=== PATIENT | male | born 1955 | race Caucasian/White ===

== ENCOUNTER 2019-08-25 11:19 | Inpatient (IN) ==
[2019-08-25] MEDS ORDERED: ADENOSINE 6 MG/2 ML VIAL ONE (11:25)
[2019-08-25] MEDS ORDERED: DILTIAZEM 50 MG/10 ML VIAL IV ONE (11:34)
[2019-08-25] MEDS ORDERED: SODIUM CHLORIDE 0.9% 500 ML IV STA ×2 (11:37→12:40)
[2019-08-25] MEDS ORDERED: ADENOSINE 6 MG/2 ML VIAL IV STA ×2 (11:38)
[2019-08-25] MEDS ORDERED: DILTIAZEM 50 MG/10 ML VIAL IV STA (11:38)
[2019-08-25 11:46] LABS: Basophils # 0.1 10*3/uL (0.0-0.2); Basophils % 0.3 % (0.0-0.8); Eosinophils # 0.1 10*3/uL (0.0-0.87); Eosinophils % 0.6 % (0.00-10.9); Hematocrit 53.2 VOL% (42.0-52.0); Hemoglobin 18.2 GM/DL (14.0-18.0); Immature Granulocytes % 0.3 %; Immature Granulocytes Absolute 0.04 #; Lymphocytes # 3.2 10*3/uL (1.4-4.0); Lymphocytes % 22.1 % (21.2-54.2); Mean Corpuscular HGB Conc 34.2 GM/DL (32-36); Mean Corpuscular Volume 90.5 FL (87-102); Mean Platelet Volume 10.2 FL (9.6-12.0); Neutrophils % 70.7 % (38.7-73.9); Platelet Count 224 T/CUMM (130-400); Red Blood Count 5.88 MC/CUMM (3.8-5.5); Red Cell Distribution Width 20.1 % (9.3-17.3); White Blood Count 14.3 T/CUMM (4-12)
[2019-08-25 11:52] LABS: INR 1.1; PT Patient Result 12.1 SECS (9.6-12.2); Partial Thromboplastin Time 28.3 SECS (20.8-36.0)
[2019-08-25] MEDS ORDERED: ONDANSETRON 4 MG/2 ML VIAL ONE (12:02)
[2019-08-25] MEDS ORDERED: ONDANSETRON 4 MG/2 ML VIAL IV STA (12:06)
[2019-08-25 12:09] LABS: Albumin 3.5 G/DL (3.4-5.0); Bilirubin,Total 1.6 MG/DL (0.2-1.0); Calcium 9.1 MG/DL (8.5-10.1); Thyroid Stimulating Hormone 3.14 uIU/ml (0.358-3.74); Total Protein 7.7 G/DL (6.4-8.3)
[2019-08-25] MEDS ORDERED: PANTOPRAZOLE 40 MG VIAL IV STA (12:40)
[2019-08-25] MEDS ORDERED: ACETAMINOPHEN 325 MG TABLET PO PRN (12:59)
[2019-08-25] MEDS ORDERED: CALCIUM (CARBONATE) 500 MG TABLET PO PRN (13:02)
[2019-08-25] MEDS ORDERED: MAGNESIUM HYDROXIDE SUSP 30 ML UDCUP PO PRN (13:02)
[2019-08-25] MEDS: dilTIAZem Drip 125 MG/125 ML PREMIX IV SCH (14:41)
[2019-08-25] MEDS: ENOXAPARIN 40 MG/0.4 ML SYRINGE SUBCUT SCH (15:54)
[2019-08-25] MEDS: SODIUM CHLORIDE 0.9% 1,000 ML IV SCH ×2 (15:54→23:21)
[2019-08-25] MEDS ORDERED: ONDANSETRON 4 MG/2 ML VIAL IM PRN (16:17)
[2019-08-25 17:23] LABS: Troponin I 0.065 NG/ML (0.00-0.045)
[2019-08-25] MEDS: PIPERACILLIN/TAZOBACTAM 3,375 MG in SODIUM CHLORIDE 0.9% 100 ML IV SCH (17:44)
[2019-08-25] MEDS: METOCLOPRAMIDE 5 MG TABLET PO SCH (17:44)
[2019-08-25] MEDS: ONDANSETRON 4 MG/2 ML VIAL IV PRN (17:52)
[2019-08-25] MEDS: metFORMIN 500 MG TABLET PO SCH (20:11)
[2019-08-25] MEDS: POTASSIUM CHLORIDE 20 MEQ TABLET PO SCH (20:11)
[2019-08-25] MEDS: TAMSULOSIN 0.4 MG CAPSULE PO SCH (20:11)
[2019-08-25] MEDS: DOCUSATE SODIUM 100 MG CAPSULE PO SCH (20:11)
[2019-08-25] MEDS: ONDANSETRON 4 MG TABLET PO SCH (20:11)
[2019-08-25] MEDS: ATORVASTATIN 40 MG TABLET PO SCH (20:12)
[2019-08-25] MEDS: MAGNESIUM OXIDE 400 MG TABLET PO SCH (20:12)
[2019-08-25] MEDS: MELATONIN 3 MG TABLET PO SCH (20:12)
[2019-08-25] MEDS: CHOLECALCIFEROL 400 UNIT TABLET PO SCH (20:12)
[2019-08-26] MEDS: ONDANSETRON 4 MG/2 ML VIAL IV PRN ×3 (00:15→12:00)
[2019-08-26] MEDS: PIPERACILLIN/TAZOBACTAM 3,375 MG in SODIUM CHLORIDE 0.9% 100 ML IV SCH ×3 (00:22→15:44)
[2019-08-26] MEDS: MORPHINE 4 MG/1 ML VIAL IV PRN (02:20)
[2019-08-26 05:02] LABS: Apearance,Urine Clear (Clear); Bacteria,Urine Occasional /HPF (Few); Bilirubin,Urine Negative (Negative); Blood, Urine NEGATIVE (Negative); Glucose,Urine (UA) Negative (Negative); Hyaline Casts,Urine 1 /LPF (0-3); Ketones,Urine 25 mg/dL (Negative); Mucus,Urine Many /LPF (Occasional); Nitrite,Urine Negative (Negative); Protein,Urine Negative; RBC,Urine 4 /HPF (0-4); Squamous Epithelial Cell,Urine Occasional /HPF (0-10); Urine Color Amber (Yellow); Urine Specific Gravity 1.025 (1.001-1.035); WBC,Urine 18 /HPF (0-6)
[2019-08-26 05:42] LABS: Basophils % 0.3 % (0.0-0.8); Eosinophils # 0.1 10*3/uL (0.0-0.87); Eosinophils % 0.5 % (0.00-10.9); Hematocrit 41.2 VOL% (42.0-52.0); Hemoglobin 13.8 GM/DL (14.0-18.0); Immature Granulocytes % 0.3 %; Immature Granulocytes Absolute 0.03 #; Lymphocytes # 1.4 10*3/uL (1.4-4.0); Lymphocytes % 14.7 % (21.2-54.2); Mean Corpuscular HGB Conc 33.5 GM/DL (32-36); Monocytes % 7.5 % (1.7-12.7); Neutrophils % 76.7 % (38.7-73.9); Platelet Count 118 T/CUMM (130-400); Red Blood Count 4.48 MC/CUMM (3.8-5.5); Red Cell Distribution Width 19.6 % (9.3-17.3); White Blood Count 9.4 T/CUMM (4-12)
[2019-08-26 06:12] LABS: Calcium 7.8 MG/DL (8.5-10.1); Osmolality,Calculated 280.1 MOS/KG (273-304)
[2019-08-26 06:30] LABS: Troponin I 0.053 NG/ML (0.00-0.045)
[2019-08-26] MEDS: SODIUM CHLORIDE 0.9% 1,000 ML IV SCH ×3 (07:21→15:47)
[2019-08-26] MEDS ORDERED: POTASSIUM CHLORIDE 20 MEQ TABLET PO ONE (08:42)
[2019-08-26] MEDS ORDERED: MAGNESIUM SULF RIDER 2 GM in PREMIX 1 EACH IV ONE ×2 (08:42→19:00)
[2019-08-26] MEDS ORDERED: SERTRALINE 25 MG TABLET PO SCH (09:00)
[2019-08-26] MEDS: METOCLOPRAMIDE 5 MG TABLET PO SCH ×3 (11:38→15:38)
[2019-08-26] MEDS: MULTIVITAMIN (CENTRUM) TABLET PO SCH (11:54)
[2019-08-26] MEDS: CHOLECALCIFEROL 400 UNIT TABLET PO SCH ×2 (11:54→20:43)
[2019-08-26] MEDS: CETIRIZINE 10 MG TABLET PO SCH (12:07)
[2019-08-26] MEDS: DOCUSATE SODIUM 100 MG CAPSULE PO SCH ×2 (12:07→20:42)
[2019-08-26] MEDS: POTASSIUM CHLORIDE 20 MEQ TABLET PO SCH ×2 (12:13→20:43)
[2019-08-26] MEDS: MAGNESIUM OXIDE 400 MG TABLET PO SCH ×2 (12:13→20:43)
[2019-08-26] MEDS: ONDANSETRON 4 MG TABLET PO SCH ×2 (12:14→20:44)
[2019-08-26] MEDS: metFORMIN 500 MG TABLET PO SCH ×2 (12:15→20:43)
[2019-08-26] MEDS: POTASSIUM CHLORIDE RIDER 10 MEQ in PREMIX 1 EACH IV PRN ×3 (12:23→14:45)
[2019-08-26] MEDS: PANTOPRAZOLE 40 MG TABLET PO SCH (12:24)
[2019-08-26] MEDS: SERTRALINE 100 MG TABLET PO SCH (12:24)
[2019-08-26] MEDS: SERTRALINE 50 MG TABLET PO SCH (12:24)
[2019-08-26] MEDS: atenoloL 25 MG TABLET PO SCH (12:24)
[2019-08-26] MEDS: dilTIAZem Drip 125 MG/125 ML PREMIX IV SCH (12:31)
[2019-08-26] MEDS: ENOXAPARIN 40 MG/0.4 ML SYRINGE SUBCUT SCH (13:40)
[2019-08-26] MEDS ORDERED: METOPROLOL TARTRATE 5 MG/5 ML VIAL IV PRN (14:34)
[2019-08-26] MEDS: FAT EMULSION 20% 250 ML IV SCH (16:17)
[2019-08-26] MEDS: MULTIVITAMIN INJ 10 ML in AMINO ACIDS/DEXT/LYTES 4.25-5% 2,000 ML IV SCH (16:17)
[2019-08-26] MEDS ORDERED: DEXTROSE 10% 1,000 ML IV PRN (17:00)
[2019-08-26] MEDS: TAMSULOSIN 0.4 MG CAPSULE PO SCH (20:42)
[2019-08-26] MEDS: MELATONIN 3 MG TABLET PO SCH (20:43)
[2019-08-26] MEDS: ATORVASTATIN 40 MG TABLET PO SCH (20:43)
[2019-08-26] MEDS: PROMETHAZINE 25 MG/1 ML VIAL IM PRN (20:44)
[2019-08-27] MEDS: PIPERACILLIN/TAZOBACTAM 3,375 MG in SODIUM CHLORIDE 0.9% 100 ML IV SCH ×4 (01:40→23:43)
[2019-08-27 06:41] LABS: Calcium 7.8 MG/DL (8.5-10.1); Osmolality,Calculated 267.2 MOS/KG (273-304); Prealbumin 8.1 MG/DL (20-40)
[2019-08-27] MEDS: METOCLOPRAMIDE 5 MG TABLET PO SCH ×3 (07:20→16:18)
[2019-08-27] MEDS: MAGNESIUM OXIDE 400 MG TABLET PO SCH ×2 (08:46→20:18)
[2019-08-27] MEDS: DOCUSATE SODIUM 100 MG CAPSULE PO SCH ×2 (08:46→20:17)
[2019-08-27] MEDS: MULTIVITAMIN (CENTRUM) TABLET PO SCH (08:46)
[2019-08-27] MEDS: PANTOPRAZOLE 40 MG TABLET PO SCH (08:46)
[2019-08-27] MEDS: POTASSIUM CHLORIDE 20 MEQ TABLET PO SCH ×2 (08:46→20:17)
[2019-08-27] MEDS: SERTRALINE 100 MG TABLET PO SCH (08:47)
[2019-08-27] MEDS: ONDANSETRON 4 MG TABLET PO SCH ×2 (08:47→20:18)
[2019-08-27] MEDS: CETIRIZINE 10 MG TABLET PO SCH (08:47)
[2019-08-27] MEDS: SERTRALINE 50 MG TABLET PO SCH (08:47)
[2019-08-27] MEDS: POTASSIUM CHLORIDE RIDER 10 MEQ in PREMIX 1 EACH IV PRN ×2 (08:52→13:16)
[2019-08-27] MEDS: atenoloL 25 MG TABLET PO SCH (08:55)
[2019-08-27] MEDS ORDERED: DOCUSATE SODIUM 100 MG CAPSULE PO SCH (09:00)
[2019-08-27 10:11] LABS: Albumin 2.2 G/DL (3.4-5.0); Bilirubin,Direct 0.27 MG/DL (0.0-0.20); Bilirubin,Indirect 0.5 MG/DL (0.0-1.0); Bilirubin,Total 0.8 MG/DL (0.2-1.0); Total Protein 5.8 G/DL (6.4-8.3)
[2019-08-27] MEDS: MULTIVITAMIN INJ 10 ML in AMINO ACIDS/DEXT/LYTES 4.25-5% 2,000 ML IV SCH (13:14)
[2019-08-27] MEDS: ENOXAPARIN 40 MG/0.4 ML SYRINGE SUBCUT SCH (13:15)
[2019-08-27] MEDS: FAT EMULSION 20% 250 ML IV SCH (13:15)
[2019-08-27] MEDS: TAMSULOSIN 0.4 MG CAPSULE PO SCH (20:17)
[2019-08-27] MEDS: ATORVASTATIN 20 MG TABLET PO SCH (20:18)
[2019-08-27] MEDS: MELATONIN 3 MG TABLET PO SCH (20:18)
[2019-08-28 05:48] LABS: Albumin 2.1 G/DL (3.4-5.0); Bilirubin,Total 0.6 MG/DL (0.2-1.0); Calcium 8.4 MG/DL (8.5-10.1); Osmolality,Calculated 267.2 MOS/KG (273-304)
[2019-08-28] MEDS: POTASSIUM CHLORIDE RIDER 10 MEQ in PREMIX 1 EACH IV PRN ×3 (06:10→07:58)
[2019-08-28] MEDS: MORPHINE 4 MG/1 ML VIAL IV PRN ×2 (08:53→13:40)
[2019-08-28] MEDS: MULTIVITAMIN INJ 10 ML in AMINO ACIDS/DEXT/LYTES 4.25-5% 2,000 ML IV SCH (09:20)
[2019-08-28] MEDS: METOCLOPRAMIDE 5 MG TABLET PO SCH ×3 (09:25→17:05)
[2019-08-28] MEDS: MULTIVITAMIN (CENTRUM) TABLET PO SCH (09:25)
[2019-08-28] MEDS: SERTRALINE 50 MG TABLET PO SCH (09:26)
[2019-08-28] MEDS: PANTOPRAZOLE 40 MG TABLET PO SCH (09:26)
[2019-08-28] MEDS: atenoloL 25 MG TABLET PO SCH (09:26)
[2019-08-28] MEDS: POTASSIUM CHLORIDE 20 MEQ TABLET PO SCH ×2 (09:26→21:26)
[2019-08-28] MEDS: SERTRALINE 100 MG TABLET PO SCH (09:26)
[2019-08-28] MEDS: MAGNESIUM OXIDE 400 MG TABLET PO SCH ×2 (09:26→21:27)
[2019-08-28] MEDS: ONDANSETRON 4 MG TABLET PO SCH ×2 (09:26→21:27)
[2019-08-28] MEDS: DOCUSATE SODIUM 100 MG CAPSULE PO SCH ×2 (09:26→21:26)
[2019-08-28] MEDS: CETIRIZINE 10 MG TABLET PO SCH (09:26)
[2019-08-28] MEDS: PIPERACILLIN/TAZOBACTAM 3,375 MG in SODIUM CHLORIDE 0.9% 100 ML IV SCH ×2 (10:10→17:09)
[2019-08-28] MEDS ORDERED: POTASSIUM CHLORIDE 20 MEQ TABLET PO ONE (12:02)
[2019-08-28] MEDS ORDERED: ONDANSETRON 4 MG/2 ML VIAL ONE (13:04)
[2019-08-28] MEDS ORDERED: fentaNYL 100 MCG/2 ML VIAL ONE (13:04)
[2019-08-28] MEDS ORDERED: MIDAZOLAM 2 MG/2 ML VIAL ONE (13:04)
[2019-08-28] MEDS: ONDANSETRON 4 MG/2 ML VIAL IV PRN (13:08)
[2019-08-28] MEDS ORDERED: fentaNYL 100 MCG/2 ML VIAL IV ONE (13:23)
[2019-08-28] MEDS: PROMETHAZINE 25 MG/1 ML VIAL IM PRN (13:47)
[2019-08-28] MEDS: ENOXAPARIN 40 MG/0.4 ML SYRINGE SUBCUT SCH (13:51)
[2019-08-28] MEDS: FAT EMULSION 20% 250 ML IV SCH (15:06)
[2019-08-28] MEDS: ATORVASTATIN 20 MG TABLET PO SCH (21:26)
[2019-08-28] MEDS: TAMSULOSIN 0.4 MG CAPSULE PO SCH (21:26)
[2019-08-28] MEDS: MELATONIN 3 MG TABLET PO SCH (21:27)
[2019-08-29] MEDS: PIPERACILLIN/TAZOBACTAM 3,375 MG in SODIUM CHLORIDE 0.9% 100 ML IV SCH ×4 (01:46→23:57)
[2019-08-29 05:12] LABS: Basophils % 0.3 % (0.0-0.8); Eosinophils # 0.1 10*3/uL (0.0-0.87); Eosinophils % 1.1 % (0.00-10.9); Hematocrit 39.6 VOL% (42.0-52.0); Hemoglobin 13.8 GM/DL (14.0-18.0); Immature Granulocytes % 0.3 %; Immature Granulocytes Absolute 0.02 #; Lymphocytes # 1.5 10*3/uL (1.4-4.0); Lymphocytes % 21.5 % (21.2-54.2); Mean Corpuscular HGB Conc 34.8 GM/DL (32-36); Mean Corpuscular Volume 88.8 FL (87-102); Mean Platelet Volume 10.2 FL (9.6-12.0); Neutrophils % 68.8 % (38.7-73.9); Platelet Count 140 T/CUMM (130-400); Red Blood Count 4.46 MC/CUMM (3.8-5.5); White Blood Count 7.1 T/CUMM (4-12)
[2019-08-29 05:18] LABS: Prealbumin 14.2 MG/DL (20-40)
[2019-08-29 05:20] LABS: Albumin 2.4 G/DL (3.4-5.0); Bilirubin,Total 0.6 MG/DL (0.2-1.0); Calcium 9.1 MG/DL (8.5-10.1); Osmolality,Calculated 262.7 MOS/KG (273-304); Total Protein 6.3 G/DL (6.4-8.3)
[2019-08-29] MEDS: MULTIVITAMIN INJ 10 ML in AMINO ACIDS/DEXT/LYTES 4.25-5% 2,000 ML IV SCH (05:39)
[2019-08-29] MEDS: POTASSIUM CHLORIDE RIDER 10 MEQ in PREMIX 1 EACH IV PRN ×2 (06:02→07:29)
[2019-08-29] MEDS ORDERED: FUROSEMIDE 20 MG/2 ML VIAL IV ONE (07:13)
[2019-08-29] MEDS ORDERED: MAGNESIUM SULF RIDER 2 GM in PREMIX 1 EACH IV ONE (07:13)
[2019-08-29] MEDS: MORPHINE 4 MG/1 ML VIAL IV PRN ×2 (07:27→18:08)
[2019-08-29] MEDS: METOCLOPRAMIDE 5 MG TABLET PO SCH ×3 (08:51→17:53)
[2019-08-29] MEDS: DOCUSATE SODIUM 100 MG CAPSULE PO SCH ×2 (08:56→22:04)
[2019-08-29] MEDS: POTASSIUM CHLORIDE 20 MEQ TABLET PO SCH ×2 (08:56→22:04)
[2019-08-29] MEDS: SERTRALINE 50 MG TABLET PO SCH (08:56)
[2019-08-29] MEDS: SERTRALINE 100 MG TABLET PO SCH (08:56)
[2019-08-29] MEDS: MULTIVITAMIN (CENTRUM) TABLET PO SCH (08:56)
[2019-08-29] MEDS: MAGNESIUM OXIDE 400 MG TABLET PO SCH ×2 (08:56→22:04)
[2019-08-29] MEDS: CETIRIZINE 10 MG TABLET PO SCH (08:56)
[2019-08-29] MEDS: PANTOPRAZOLE 40 MG TABLET PO SCH (08:57)
[2019-08-29] MEDS: ONDANSETRON 4 MG TABLET PO SCH ×2 (08:57→22:05)
[2019-08-29] MEDS ORDERED: atenoloL 50 MG TABLET PO SCH (09:00)
[2019-08-29] MEDS ORDERED: FUROSEMIDE 20 MG/2 ML VIAL IV SCH (09:00)
[2019-08-29] MEDS: ENOXAPARIN 40 MG/0.4 ML SYRINGE SUBCUT SCH (13:22)
[2019-08-29] MEDS: FAT EMULSION 20% 250 ML IV SCH (14:33)
[2019-08-29] MEDS ORDERED: DEXTROSE 10% 1,000 ML IV PRN (17:00)
[2019-08-29] MEDS: TRACE ELEMENTS (5) 1 ML, MULTIVITAMIN INJ 10 ML in AMINO ACIDS/DEXT/LYTES 4.25-5% 2,000 ML IV SCH (18:01)
[2019-08-29] MEDS: SCOPOLAMINE 1.5 MG PATCH TRANSDERM SCH (20:55)
[2019-08-29] MEDS: ATORVASTATIN 20 MG TABLET PO SCH (22:04)
[2019-08-29] MEDS: TAMSULOSIN 0.4 MG CAPSULE PO SCH (22:04)
[2019-08-29] MEDS: MELATONIN 3 MG TABLET PO SCH (22:05)
[2019-08-29] MEDS: SODIUM CHLORIDE 0.9% 1,000 ML IV SCH (23:57)
[2019-08-30] MEDS: MORPHINE 4 MG/1 ML VIAL IV PRN ×2 (03:46→09:30)
[2019-08-30 06:36] LABS: Basophils % 0.5 % (0.0-0.8); Eosinophils # 0.1 10*3/uL (0.0-0.87); Eosinophils % 1.7 % (0.00-10.9); Hematocrit 40.1 VOL% (42.0-52.0); Hemoglobin 14.1 GM/DL (14.0-18.0); Immature Granulocytes % 0.4 %; Immature Granulocytes Absolute 0.03 #; Lymphocytes % 26.5 % (21.2-54.2); Mean Corpuscular HGB Conc 35.2 GM/DL (32-36); Mean Corpuscular Volume 88.3 FL (87-102); Mean Platelet Volume 10.3 FL (9.6-12.0); Monocytes % 8.5 % (1.7-12.7); Neutrophils % 62.4 % (38.7-73.9); Platelet Count 162 T/CUMM (130-400); Red Blood Count 4.54 MC/CUMM (3.8-5.5); Red Cell Distribution Width 19.4 % (9.3-17.3); White Blood Count 7.6 T/CUMM (4-12)
[2019-08-30 07:04] LABS: Calcium 8.8 MG/DL (8.5-10.1); Osmolality,Calculated 260.9 MOS/KG (273-304)
[2019-08-30] MEDS ORDERED: ASPIRIN EC 81 MG TABLET PO SCH (09:00)
[2019-08-30] MEDS: ASPIRIN EC 81 MG TABLET PO SCH (09:31)
[2019-08-30] MEDS: METOPROLOL TARTRATE 25 MG TABLET PO SCH ×2 (09:31→20:51)
[2019-08-30] MEDS: FUROSEMIDE 20 MG/2 ML VIAL IV SCH (09:32)
[2019-08-30] MEDS: PIPERACILLIN/TAZOBACTAM 3,375 MG in SODIUM CHLORIDE 0.9% 100 ML IV SCH ×2 (09:32→17:07)
[2019-08-30] MEDS: FAT EMULSION 20% 250 ML IV SCH (14:10)
[2019-08-30] MEDS: ENOXAPARIN 40 MG/0.4 ML SYRINGE SUBCUT SCH (14:10)
[2019-08-30] MEDS: TRACE ELEMENTS (5) 1 ML, MULTIVITAMIN INJ 10 ML in AMINO ACIDS/DEXT/LYTES 4.25-5% 2,000 ML IV SCH (17:07)
[2019-08-30] MEDS: ONDANSETRON 4 MG/2 ML VIAL IV PRN (17:49)
[2019-08-30] MEDS ORDERED: FUROSEMIDE 20 MG/2 ML VIAL IV ONE (23:32)
[2019-08-31] MEDS: SODIUM CHLORIDE 0.9% 1,000 ML IV SCH ×2 (00:08→16:23)
[2019-08-31 03:45] LABS: Basophils % 0.5 % (0.0-0.8); Eosinophils # 0.3 10*3/uL (0.0-0.87); Eosinophils % 3.5 % (0.00-10.9); Hematocrit 41.9 VOL% (42.0-52.0); Hemoglobin 14.5 GM/DL (14.0-18.0); Immature Granulocytes % 0.3 %; Immature Granulocytes Absolute 0.02 #; Lymphocytes % 26.1 % (21.2-54.2); Mean Corpuscular HGB Conc 34.6 GM/DL (32-36); Mean Corpuscular Volume 89.9 FL (87-102); Mean Platelet Volume 9.8 FL (9.6-12.0); Neutrophils % 60.6 % (38.7-73.9); Platelet Count 196 T/CUMM (130-400); Red Blood Count 4.66 MC/CUMM (3.8-5.5); Red Cell Distribution Width 19.5 % (9.3-17.3); White Blood Count 7.5 T/CUMM (4-12)
[2019-08-31 04:10] LABS: Albumin 2.6 G/DL (3.4-5.0); Bilirubin,Total 0.9 MG/DL (0.2-1.0); Osmolality,Calculated 269.4 MOS/KG (273-304); Total Protein 6.9 G/DL (6.4-8.3)
[2019-08-31] MEDS ORDERED: FUROSEMIDE 20 MG/2 ML VIAL IV SCH (09:00)
[2019-08-31] MEDS: ASPIRIN EC 81 MG TABLET PO SCH (09:20)
[2019-08-31] MEDS: METOPROLOL TARTRATE 25 MG TABLET PO SCH ×2 (09:20→21:25)
[2019-08-31] MEDS: FUROSEMIDE 20 MG/2 ML VIAL IV SCH (09:22)
[2019-08-31] MEDS: KETOROLAC 15 MG/1 ML VIAL IV PRN (10:38)
[2019-08-31] MEDS: ENOXAPARIN 40 MG/0.4 ML SYRINGE SUBCUT SCH (14:18)
[2019-08-31] MEDS ORDERED: SODIUM CHLORIDE 0.9% IV SCH (16:07)
[2019-08-31] MEDS ORDERED: MAGNESIUM SULF IV SCH (16:07)
[2019-08-31] MEDS ORDERED: POTASSIUM CHLORIDE IV SCH (16:07)
[2019-08-31] MEDS: SODIUM CHLORIDE 0.9% IV SCH (17:10)
[2019-08-31] MEDS: POTASSIUM CHLORIDE IV SCH (17:10)
[2019-08-31] MEDS: MAGNESIUM SULF IV SCH (17:10)
[2019-08-31] MEDS: MAGNESIUM CHLORIDE 64 MG TABLET PO SCH (21:25)
[2019-09-01] MEDS: POTASSIUM CHLORIDE IV SCH ×2 (03:30→14:04)
[2019-09-01] MEDS: MAGNESIUM SULF IV SCH ×2 (03:30→14:04)
[2019-09-01] MEDS: SODIUM CHLORIDE 0.9% IV SCH ×2 (03:30→14:04)
[2019-09-01 05:12] LABS: Basophils % 0.3 % (0.0-0.8); Eosinophils # 0.2 10*3/uL (0.0-0.87); Eosinophils % 3.4 % (0.00-10.9); Hematocrit 37.1 VOL% (42.0-52.0); Hemoglobin 12.7 GM/DL (14.0-18.0); Immature Granulocytes % 0.5 %; Immature Granulocytes Absolute 0.03 #; Lymphocytes # 2.4 10*3/uL (1.4-4.0); Lymphocytes % 36.6 % (21.2-54.2); Mean Corpuscular HGB Conc 34.2 GM/DL (32-36); Mean Corpuscular Volume 90.3 FL (87-102); Mean Platelet Volume 10.1 FL (9.6-12.0); Neutrophils % 51.2 % (38.7-73.9); Platelet Count 169 T/CUMM (130-400); Red Blood Count 4.11 MC/CUMM (3.8-5.5); Red Cell Distribution Width 19.2 % (9.3-17.3); White Blood Count 6.5 T/CUMM (4-12)
[2019-09-01 05:33] LABS: Albumin 2.4 G/DL (3.4-5.0); Bilirubin,Total 0.6 MG/DL (0.2-1.0); Calcium 8.4 MG/DL (8.5-10.1)
[2019-09-01] MEDS: ASPIRIN EC 81 MG TABLET PO SCH (08:49)
[2019-09-01] MEDS: METOPROLOL TARTRATE 25 MG TABLET PO SCH ×2 (08:49→21:35)
[2019-09-01] MEDS: MAGNESIUM CHLORIDE 64 MG TABLET PO SCH ×2 (08:51→21:35)
[2019-09-01] MEDS: FUROSEMIDE 20 MG/2 ML VIAL IV SCH (09:06)
[2019-09-01] MEDS: SCOPOLAMINE 1.5 MG PATCH TRANSDERM SCH (09:54)
[2019-09-01] MEDS: ENOXAPARIN 40 MG/0.4 ML SYRINGE SUBCUT SCH (16:37)
[2019-09-01 17:31] LABS: Apearance,Urine CLEAR (Clear); Bilirubin,Urine Negative (Negative); Blood, Urine Negative (Negative); Glucose,Urine (UA) Negative (Negative); Hyaline Casts,Urine 6 /LPF (0-3); Ketones,Urine Negative (Negative); Mucus,Urine Few /LPF (Occasional); Nitrite,Urine Negative (Negative); Protein,Urine Negative; RBC,Urine 2 /HPF (0-4); Urine Color Straw (Yellow); Urine Specific Gravity 1.006 (1.001-1.035); Urine Urobilinogen < 2.0 EU/DL (0.2-1.0); WBC,Urine <1 /HPF (0-6)
[2019-09-01] MEDS: KETOROLAC 15 MG/1 ML VIAL IV PRN (18:27)
[2019-09-02] MEDS: POTASSIUM CHLORIDE IV SCH ×3 (00:53→22:36)
[2019-09-02] MEDS: SODIUM CHLORIDE 0.9% IV SCH ×3 (00:53→22:36)
[2019-09-02] MEDS: MAGNESIUM SULF IV SCH ×3 (00:53→22:36)
[2019-09-02 06:02] LABS: Basophils % 0.4 % (0.0-0.8); Eosinophils # 0.2 10*3/uL (0.0-0.87); Eosinophils % 1.9 % (0.00-10.9); Hematocrit 38.6 VOL% (42.0-52.0); Hemoglobin 13.3 GM/DL (14.0-18.0); Immature Granulocytes % 0.4 %; Immature Granulocytes Absolute 0.03 #; Lymphocytes # 1.4 10*3/uL (1.4-4.0); Lymphocytes % 17.8 % (21.2-54.2); Mean Corpuscular HGB Conc 34.5 GM/DL (32-36); Mean Corpuscular Volume 90.4 FL (87-102); Mean Platelet Volume 9.7 FL (9.6-12.0); Monocytes % 8.5 % (1.7-12.7); Platelet Count 192 T/CUMM (130-400); Red Blood Count 4.27 MC/CUMM (3.8-5.5)
[2019-09-02] MEDS: KETOROLAC 15 MG/1 ML VIAL IV PRN ×2 (06:13→17:51)
[2019-09-02 06:26] LABS: Albumin 2.6 G/DL (3.4-5.0); Bilirubin,Total 0.6 MG/DL (0.2-1.0); Calcium 8.6 MG/DL (8.5-10.1); Osmolality,Calculated 265.2 MOS/KG (273-304); Total Protein 6.7 G/DL (6.4-8.3)
[2019-09-02 06:27] LABS: Prealbumin 21.7 MG/DL (20-40)
[2019-09-02] MEDS ORDERED: SODIUM CHLORIDE 0.9% 1,000 ML IV SCH (09:00)
[2019-09-02 09:28] LABS: PT Patient Result 11.1 SECS (9.6-12.2)
[2019-09-02 09:45] LABS: Albumin 2.7 G/DL (3.4-5.0); Bilirubin,Total 0.6 MG/DL (0.2-1.0); Calcium 8.5 MG/DL (8.5-10.1); Osmolality,Calculated 262.5 MOS/KG (273-304); Total Protein 6.7 G/DL (6.4-8.3)
[2019-09-02] MEDS: ASPIRIN EC 81 MG TABLET PO SCH (10:41)
[2019-09-02] MEDS: METOPROLOL TARTRATE 25 MG TABLET PO SCH ×2 (10:42→22:35)
[2019-09-02] MEDS: MAGNESIUM CHLORIDE 64 MG TABLET PO SCH ×2 (10:43→22:36)
[2019-09-02] MEDS: FUROSEMIDE 20 MG/2 ML VIAL IV SCH (11:08)
[2019-09-02] MEDS: LIDOCAINE 5% PATCH TRANSDERM PRN (13:06)
[2019-09-02] MEDS: ENOXAPARIN 40 MG/0.4 ML SYRINGE SUBCUT SCH (13:52)
[2019-09-02] MEDS ORDERED: ATORVASTATIN 40 MG TABLET PO SCH (21:00)
[2019-09-03] MEDS: KETOROLAC 15 MG/1 ML VIAL IV PRN ×2 (06:12→16:23)
[2019-09-03] MEDS: MORPHINE 4 MG/1 ML VIAL IV PRN ×2 (11:21→20:20)
[2019-09-03] MEDS: LIDOCAINE 5% PATCH TRANSDERM PRN (13:22)
[2019-09-04] MEDS: KETOROLAC 15 MG/1 ML VIAL IV PRN (05:53)
[2019-09-04] MEDS: SCOPOLAMINE 1.5 MG PATCH TRANSDERM SCH (08:32)
[2019-09-04] MEDS: LIDOCAINE 5% PATCH TRANSDERM PRN (10:30)
[2019-09-04] MEDS: MORPHINE 4 MG/1 ML VIAL IV PRN ×2 (10:42→19:30)
[2019-09-05] MEDS: MORPHINE 4 MG/1 ML VIAL IV PRN ×4 (02:47→21:08)
[2019-09-05] MEDS: LIDOCAINE 5% PATCH TRANSDERM PRN (10:33)
[2019-09-06] MEDS: MORPHINE 4 MG/1 ML VIAL IV PRN ×4 (05:45→22:25)
[2019-09-06] MEDS ORDERED: MORPHINE 4 MG/1 ML VIAL IV ONE (18:31)
[2019-09-07] MEDS: MORPHINE 4 MG/1 ML VIAL IV PRN ×3 (03:33→10:06)
[2019-09-07] MEDS: SCOPOLAMINE 1.5 MG PATCH TRANSDERM SCH (08:01)
[2019-09-07] MEDS: ONDANSETRON 4 MG/2 ML VIAL IV PRN (08:01)
[2019-09-07] MEDS ORDERED: MORPHINE INJ 100 MG in SODIUM CHLORIDE 0.9% 90 ML IV PRN (08:30)
[2019-09-07] MEDS: POLYVINYL ALCOHOL 1.4% OPH SOLN 15 ML BOTTLE BOTH EYES SCH ×2 (16:26→21:05)
[2019-09-08] MEDS: POLYVINYL ALCOHOL 1.4% OPH SOLN 15 ML BOTTLE BOTH EYES SCH (08:46)
[2019-09-08 12:05] VITALS: BP 71/50
[2019-09-08] MEDS: MORPHINE 4 MG/1 ML VIAL IV PRN (13:04)
== END 2019-09-08 14:47 | disposition expired | DRG 445 ==
LOC: EDBD → EDUNIT# → N.ED 11:19 → N.EDINP 12:59 → N.ICU 13:29 → N.4E 08-29 20:06
PROVIDERS: ADMIT Internal Medicine; ATTEND Internal Medicine